=== PATIENT | male | born 1945 | race African-American/Black ===

== ENCOUNTER 2022-09-12 16:47 | Inpatient (IN) | payer MEDICARE, BC ==
[~2022-09-12] VITALS: Ht 182.9 cm; Wt 103.9 kg
[2022-09-12] MEDS ORDERED: ASPIRIN 81MG TABLET PO ONE (17:30)
[2022-09-12 17:46] LABS: BASOPHILS % 0.6 % (0.0-2.0); EOSINOPHILS % 2.6 % (0.0-5.0); HEMATOCRIT. 35.5 % (42.0-52.0); HEMOGLOBIN. 12.3 g/dL (14.0-18.0); LYMPHOCYTES % 22.5 % (20.0-50.0); MEAN CORPUSCULAR HEMOGLOBIN 32.4 pg (28.0-32.0); MEAN CORPUSCULAR VOLUME 93.9 fL (80.0-94.0); MONOCYTES % 9.4 % (2.0-8.0); NEUTROPHILS % 64.9 % (40.0-76.0); PLATELET 288 x1000/uL (130-400); RED BLOOD CELL COUNT 3.78 mill/uL (4.7-6.1); RED CELL DISTRIBUTION WIDTH 13.4 % (11.6-14.6)
[2022-09-12 17:51] LABS: CHLORIDE 105 mEq/L (98-107)
[2022-09-12] MEDS ORDERED: ENOXAPARIN 100MG/ML SYR SUBCUT ONE (21:30)
[2022-09-12] MEDS ORDERED: ASPIRIN 81MG EC TABLET PO NR (23:30)
[2022-09-12] MEDS ORDERED: ACETAMINOPHEN 325MG TABLET PO PRN (23:30)
[2022-09-12] MEDS ORDERED: ONDANSETRON HCL 4MG/2ML INJ IV PRN (23:30)
[2022-09-12] MEDS ORDERED: MAGNESIUM/ALUMINUM HYDROXIDE/SIMETHICONE 30ML UDC PO PRN (23:30)
[2022-09-12] MEDS ORDERED: ZOLPIDEM TARTRATE 5MG TABLET PO PRN (23:30)
[2022-09-12] MEDS ORDERED: DIPHENHYDRAMINE 50MG/ML VIAL IV PRN (23:30)
[2022-09-12] MEDS ORDERED: GUAIFENESIN 200MG/10ML SUGAR FREE UDC PO PRN (23:30)
[2022-09-12] MEDS ORDERED: HYDROCODONE/ACETAMINOPHEN 5/325MG TABLET PO PRN (23:30)
[2022-09-12] MEDS ORDERED: MAGNESIUM HYDROXIDE 400MG/5ML 30ML UDC PO PRN (23:30)
[2022-09-12] MEDS ORDERED: MORPHINE SULFATE 4 MG/ML CPJ (NOT FOR IM USE) IV PRN (23:45)
[2022-09-13 00:57] VITALS: BP 127/62
[2022-09-13] MEDS ORDERED: SIMV-46 PO (05:31)
[2022-09-13] MEDS ORDERED: ATEN50TA PO (05:31)
[2022-09-13] MEDS ORDERED: ASPI-1497 PO (05:31)
[2022-09-13] MEDS ORDERED: CLOP-31 PO (05:31)
[2022-09-13] MEDS: SODIUM CHLORIDE 0.9% INJ 3ML FLUSH IVF SCH ×3 (06:23→20:52)
[2022-09-13 08:00] VITALS: BP 118/60
[2022-09-13] MEDS: ATENOLOL 25MG TABLET PO SCH (09:22)
[2022-09-13] MEDS: CLOPIDOGREL 75MG TABLET PO SCH (09:23)
[2022-09-13] MEDS: ASPIRIN 81MG EC TABLET PO SCH (09:23)
[2022-09-13] MEDS: ENOXAPARIN 100MG/ML SYR SUBCUT SCH ×2 (09:24→20:52)
[2022-09-13] MEDS: ACETAMINOPHEN 325MG TABLET PO PRN ×2 (09:30→17:15)
[2022-09-13 12:00] VITALS: BP 109/67
[2022-09-13 16:00] VITALS: BP 121/59
[2022-09-13 16:25] LABS: INR 1.2; PROTHROMBIN TIME 12.4 sec (9.6-11.0)
[2022-09-13 20:00] VITALS: BP 104/63
[2022-09-14] VITALS: BP 110/60
[2022-09-14 04:00] VITALS: BP 130/75
[2022-09-14] MEDS: ACETAMINOPHEN 325MG TABLET PO PRN (04:59)
[2022-09-14] MEDS: SODIUM CHLORIDE 0.9% INJ 3ML FLUSH IVF SCH (06:00)
[2022-09-14 08:00] VITALS: BP 118/71
[2022-09-14] MEDS: ASPIRIN 81MG EC TABLET PO SCH (09:18)
[2022-09-14] MEDS: CLOPIDOGREL 75MG TABLET PO SCH (09:18)
[2022-09-14] MEDS: ENOXAPARIN 100MG/ML SYR SUBCUT SCH (09:19)
[2022-09-14] MEDS: ATENOLOL 25MG TABLET PO SCH (09:19)
[2022-09-14 11:42] VITALS: BP 118/71
== END 2022-09-14 13:08 | disposition home or self-care (01) | DRG 176 ==
LOC: ER 17:01 → MICUSO 22:24 → ENRESERV 23:06 → 8WST 09-13 03:11
PROVIDERS: ADMIT Internal Medicine; ATTEND Internal Medicine
DX: I26.99 Other pulmonary embolism without acute cor pulmonale (principal); E44.1 Mild protein-calorie malnutrition; I25.10 Atherosclerotic heart disease of native coronary artery without angina pectoris; E78.00 Pure hypercholesterolemia, unspecified; E78.5 Hyperlipidemia, unspecified; I10 Essential (primary) hypertension; I25.2 Old myocardial infarction; Z95.5 Presence of coronary angioplasty implant and graft; Z95.0 Presence of cardiac pacemaker; Z88.0 Allergy status to penicillin; Z68.31 Body mass index [BMI] 31.0-31.9, adult
CPT/HCPCS: 36415; 71045; 71275; 80053; 84484; 85025; 85379; 93005; 93306; 93970; 99291; J1650; J2270